=== PATIENT | male | born 1995 | race Caucasian/White ===

== ENCOUNTER 2021-09-22 05:49 | Emergency (ER) | payer OTHER ==
[~2021-09-22] VITALS: Ht 180.3 cm; Wt 84.8 kg
--- NOTE | 2021-09-22 06:11 | PHYS DOC ---
Past History Past Surgical History: Other Additional Past Surgical Histo: right wrist surgery Adult General Chief Complaint Chief Complaint: CONGESTION HPI HPI Patient is a 26 year old male who presents with sore throat. Patient states he has chronic congestion over the last several years. Over the last couple of days, he developed a worsening sore throat and some swelling in the back of his throat. Also some swollen lymph nodes in the neck. Has general malaise. No fever. No cough. No nausea vomiting or abdominal pain. No ill contacts. Review of Systems Review of Systems Constitutional: general malaise Eyes: Denies change in visual acuity, redness, or eye pain HENT: + congestion, sore throat Respiratory: Denies cough or shortness of breath Cardiovascular: No additional information not addressed in HPI Musculoskeletal: Denies Integument: Denies rash or skin lesions Neurologic: Denies All other systems were reviewed and found to be within normal limits, except as documented in this note. Allergies Allergies Allergies Coded Allergies Type Severity Reaction Last Updated Verified No Known Drug Allergies 09/22/21 No Physical Exam Physical Exam Constitutional: Well developed, well nourished, no acute distress, non-toxic appearance HENT: Normocephalic, atraumatic, bilateral external ears normal, + erythematous tonsils with some exudates present. Uvula midline. Floor mouth is soft. Posterior oropharynx is otherwise clear. Eyes: PERRLA, EOMI, conjunctiva normal, no discharge. Neck: Normal range of motion Cardiovascular:Heart rate regular rhythm, no murmur Lungs & Thorax: Bilateral breath sounds clear to auscultation Skin: Warm, dry, no erythema, no rash. Extremities: Normal ROM Neurologic: Alert and oriented X 3, normal motor function, normal sensory functi on Current Patient Data Vital Signs Vital Signs Date Time Temp Pulse Resp B/P (MAP) Pulse Ox O2 Delivery O2 Flow Rate FiO2 09/22/21 06:05 102.7 98 20 148/84 (105) 98 Room Air EKG EKG [] Radiology/Procedures Radiology/Procedures [] Heart Score C/O Chest Pain: No Risk Factors: Risk Factors: DM, Current or recent (<one month) smoker, HTN, HLP, family history of CAD, obesity. Risk Scores: Risk Factors: DM, Current or recent (<one month) smoker, HTN, HLP, family history of CAD, obesity. Course & Med Decision Making Course & Med Decision Making Pertinent Labs and Imaging studies reviewed. (See chart for details) ED Summary: Patient seen in the emergency department on arrival to his room. He does have a fever on arrival but is overall nontoxic-appearing and is in no distress. His heart rate is normal. He has physical exam findings concerning for strep throat but strep testing returns negative in the ER. His lungs are clear with good air movement in all cavazos. His neck is supple. Monospot is also done in the ER and is negative. Likely viral pharyngitis. He underwent Covid testing yesterday which was negative. Given the appearance of his throat however, he is treated with amoxicillin. He is given Motrin and Tylenol ER and his fever is trending downward prior to discharge. Stable for discharge home I recommended he rest at home. Take amoxicillin and use Tylenol and ibuprofen at home for fever control. Follow-up with his primary care doctor. Xochilt Disclaimer Xochilt Disclaimer This electronic medical record was generated, in whole or in part, using a voice recognition dictation system. Departure Departure: Impression: Primary Impression: Pharyngitis Additional Impression: Febrile illness, acute Disposition: HOME / SELF CARE / HOMELESS Condition: GOOD Referrals: PCP,NO (PCP) Patient Instructions: Fever, Adult, [id number], Viral and Bacterial Pharyngitis Scripts Amoxicillin (AMOXICILLIN) 500 Mg Tablet 1 TAB PO BID, #20 TAB Prov: JONATHAN PADILLA DO 09/22/21 Ibuprofen (IBUPROFEN) 800 Mg Tablet 800 MG PO TID for 7 Days, #21 TAB Prov: JONATHAN PADILLA DO 09/22/21 Problem Qualifiers JONATHAN PADILLA DO Sep 22, 2021 06:11
[2021-09-22] MEDS ORDERED: AMOXICILLIN 250 MG CAPSULE PO ONE (07:00)
[2021-09-22] MEDS ORDERED: IBUPROFEN 800 MG TABLET. PO ONE (07:00)
[2021-09-22] MEDS ORDERED: ACETAMINOPHEN 500 MG TABLET PO ONE (07:00)
[2021-09-22 07:18] LABS: MONONUCLEOSIS PATIENT NEGATIVE (NEGATIVE)
[2021-09-22] MEDS ORDERED: IBUP800T19 PO (07:27)
[2021-09-22] MEDS ORDERED: AMOX500T PO (07:27)
[2021-09-22 07:36] VITALS: BP 142/81
== END 2021-09-22 07:39 | disposition home or self-care (01) ==
LOC: ER 05:49
DX: J02.9 Acute pharyngitis, unspecified (principal)
CPT/HCPCS: 86308; 87070; 87880; 99284